=== PATIENT | male | born 1990 | race Caucasian/White ===

== ENCOUNTER 2023-12-08 03:25 | Emergency (ER) | payer SELFPAY ==
[~2023-12-08] VITALS: Ht 182.9 cm; Wt 88.0 kg
[2023-12-08 03:25] VITALS: BP 111/65; PULSE 103; RESP 19; TEMP 98.3; O2SAT 95
[2023-12-08 03:45] VITALS: BP 111/65; PULSE 103; RESP 19; TEMP 98.3; O2SAT 95
== END 2023-12-08 03:45 ==
LOC: MED 03:25
DX: Z02.89 Encounter for other administrative examinations (principal); V89.2XXA Person injured in unspecified motor-vehicle accident, traffic, initial encounter; Y93.89 Activity, other specified; Y92.410 Unspecified street and highway as the place of occurrence of the external cause; Y99.8 Other external cause status
CPT/HCPCS: 99283